=== PATIENT | female | born 2000 | race Caucasian/White ===

== ENCOUNTER 2018-03-13 13:42 | Inpatient (IN) | payer MEDICAID ==
[2018-03-13] MEDS ORDERED: Sodium Chloride 0.9% 1,000 ML IV STA (13:59)
--- NOTE | 2018-03-13 14:00 | ED PDOC ---
HPI: Abdomen Time Seen by Provider: 03/13/18 13:50 Chief Complaint (Nursing): GI Problem History Per: Patient Onset/Duration Of Symptoms: Days (2) Current Symptoms Are (Timing): Still Present Severity: Moderate Pain Scale Rating Of: 5 Quality Of Discomfort: Unable To Describe Associated Symptoms: Fever, Nausea, Vomiting. denies: Diarrhea Exacerbating Factors: None Alleviating Factors: None Additional Complaint(s): Refferred by PMD for fever assoc with headache, abd pain,nausea and vomiting x 1 day. Dx'ed with Hand, foot, mouth disease 2 weeks ago, improved but then started with above sxs yesterday. Denies stiff neck. Past Medical History Vital Signs: Last Vital Signs Temp 100.8 F H 03/13/18 15:44 Pulse 117 H 03/13/18 15:44 Resp 16 03/13/18 15:44 BP 93/53 L 03/13/18 15:44 Pulse Ox 100 03/13/18 16:29 - Medical History PMH: Asthma - Family History Family History: States: Unknown Family Hx - Allergies Allergies/Adverse Reactions: Allergies Allergy/AdvReac Type Severity Reaction Status Date / Time No Known Allergies Allergy Verified 03/13/18 13:43 Review of Systems ROS Statement: Except As Marked, All Systems Reviewed And Found Negative Constitutional: Positive for: Fever Gastrointestinal: Positive for: Nausea, Vomiting, Abdominal Pain Neurological: Positive for: Headache Physical Exam - Reviewed Nursing Documentation Reviewed: Yes Vital Signs Reviewed: Yes - Physical Exam Appears: Positive for: Non-toxic, No Acute Distress Head Exam: Positive for: ATRAUMATIC, NORMAL INSPECTION, NORMOCEPHALIC Skin: Positive for: Normal Color, Warm. Negative for: Rash (No rash noted on hands feet or mouth) Eye Exam: Positive for: EOMI, Normal appearance, PERRL ENT: Positive for: Normal ENT Inspection Neck: Positive for: Normal, Painless ROM, Supple Cardiovascular/Chest: Positive for: Regular Rate, Rhythm Respiratory: Positive for: CNT, Normal Breath Sounds Gastrointestinal/Abdominal: Positive for: Normal Exam, Soft. Negative for: Tenderness Back: Positive for: Normal Inspection Extremity: Positive for: Normal ROM Neurologic/Psych: Positive for: Alert, Oriented - Laboratory Results Result Diagrams: 03/13/18 14:32 03/13/18 14:32 - ECG O2 Sat by Pulse Oximetry: 100 Medical Decision Making Medical Decision Making: LP performed by Dr. Goel, anesthesia Disposition - Clinical Impression Clinical Impression: SIRS (systemic inflammatory response syndrome), Anemia - Patient ED Disposition Is Patient to be Admitted: Yes - Disposition Disposition Time: 18:00 Condition: FAIR Forms: [facility] (Portuguese) - Pt Status Changed To: Hospital Disposition Of: Observation - POA Present On Arrival: None
[2018-03-13] MEDS: Sodium Chloride 0.9% 1,000 ML IV STA ×2 (14:11→17:55)
[2018-03-13 14:19] LABS: VENOUS BLOOD GAS BASE EXCESS -2.6 mmol/L (0.0-2.0); VENOUS BLOOD GAS PCO2 40 mmHg (40-60); VENOUS BLOOD GAS PO2 28 mm/Hg (30-55); VENOUS BLOOD PH 7.36 (7.32-7.43)
[2018-03-13 14:51] LABS: BASO % 0.3 % (0.0-2.0); EOS % 0.1 % (0.0-4.0); LYMPH # 1.2 K/uL (1.0-4.3); LYMPH % 15.7 % (20.0-40.0); MEAN CELL VOLUME 54.9 fl (81.0-99.0); MEAN CORPUSCULAR HEMOGLOBIN 17.3 pg (27.0-31.0); MEAN CORPUSCULAR HGB CONC 31.6 g/dL (33.0-37.0); MONO # 0.2 K/uL (0.0-0.8); MONO % 2.4 % (0.0-10.0); NEUT % 81.5 % (50.0-75.0); RBC 4.6 Mil/uL (3.80-5.20); RED CELL DISTRIBUTION WIDTH 20.9 % (11.5-14.5); WHITE BLOOD COUNT 7.4 K/uL (4.8-10.8)
--- NOTE | 2018-03-13 14:53 | CT ---
Date of service: 03/13/2018 PROCEDURE: CT HEAD WITHOUT CONTRAST. HISTORY: headache COMPARISON: None available. TECHNIQUE: Axial computed tomography images were obtained through the head/brain without intravenous contrast. Radiation dose: Total exam DLP = mGy-cm. This CT exam was performed using one or more of the following dose reduction techniques: Automated exposure control, adjustment of the mA and/or kV according to patient size, and/or use of iterative reconstruction technique. FINDINGS: HEMORRHAGE: No intracranial hemorrhage. BRAIN: No mass effect or edema. No atrophy or chronic microvascular ischemic changes. VENTRICLES: Unremarkable. No hydrocephalus. CALVARIUM: Unremarkable. PARANASAL SINUSES: Unremarkable as visualized. No significant inflammatory changes. MASTOID AIR CELLS: Unremarkable as visualized. No inflammatory changes. OTHER FINDINGS: None. IMPRESSION: Normal CT of the Head.
[2018-03-13 15:15] LABS: ALB/GLOB RATIO 1.1 (1.0-2.1); ALBUMIN 3.9 g/dL (3.5-5.0); ALT/SGPT 32 U/L (9-52); AST/SGOT 39 U/L (14-36); BLOOD UREA NITROGEN 13 mg/dl (7-17); CALCIUM 8.7 mg/dL (8.4-10.2); GFR AFRICAN-AMERICAN > 60; GFR NON-AFRICAN AMERICAN > 60
[2018-03-13] MEDS ORDERED: Lidocaine 1% 20 MG/2 ML PF AMP ONE ×2 (15:28→16:14)
[2018-03-13] MEDS ORDERED: Lidocaine Hydrochloride 5 ML INJ ONE (16:14)
[2018-03-13 16:57] LABS: FLUID TYPE SPINAL FLUID
--- NOTE | 2018-03-13 17:07 | RAD ---
Date of service: 03/13/2018 HISTORY: Fever COMPARISON: No prior. FINDINGS: LUNGS: No active pulmonary disease. PLEURA: No significant pleural effusion identified, no pneumothorax apparent. CARDIOVASCULAR: Normal. OSSEOUS STRUCTURES: No significant abnormalities. VISUALIZED UPPER ABDOMEN: Normal. OTHER FINDINGS: None. IMPRESSION: No active disease.
[2018-03-13 17:30] LABS: CSF APPEARANCE CLEAR/COLORLESS (CLEAR); CSF VOLUME 2 mL (0-1)
--- NOTE | 2018-03-13 18:24 | CP.PCM.PN ---
Subjective - Date & Time of Evaluation Date of Evaluation: 03/13/18 Time of Evaluation: 16:10 - Subjective Subjective: Consult requested by Dr Kamara to perform lumbar puncture to rule out meningitis after previous unsuccessful attempt. Objective - Vital Signs/Intake and Output Vital Signs (last 24 hours): Temp Pulse Resp BP Pulse Ox 100.8 F H 117 H 16 93/53 L 100 03/13/18 15:44 03/13/18 15:44 03/13/18 15:44 03/13/18 15:44 03/13/18 18:00 Intake and Output: 03/13/18 03/13/18 06:59 18:59 Intake Total 1000 Balance 1000 - Medications Medications: Current Medications Sodium Chloride (Sodium Chloride 0.9%) 1,000 mls @ 200 mls/hr IV .Q5H STA Stop: 03/13/18 18:55 Last Admin: 03/13/18 17:55 Dose: 200 mls/hr - Labs Labs: 03/13/18 14:32 03/13/18 14:32 - Constitutional Appears: Well Assessment and Plan - Assessment and Plan (Free Text) Assessment: Chief complaint consistent with possible meningitis. Plan: Will perform lumbar puncture for CSF studies per Dr. Kamara. Procedures Attestation:: I certify that I have explained the specified Operation(s) or Procedure(s), risks, benefits and reasonable alternatives to the Patient and/or other person responsible. The opportunity was given to ask questions and all questions answered - Lumbar Puncture Consent Obtained: Written Consent Time Out Performed: Yes Patient Position: Upright Skin Prep: Povidone-Iodine 1% Local Anesthetic Used: Lidocaine 1% Amount of Anesthesia Used (mls): 3 (cc) Spinal Needle Gauge: 20G Interspace Used: L4-L5 Fluid Initially Obtained: Clear Complications: None Additional comments: Risks and benefits of the procedure were explained by Anh Alatorre prior to his attempt and again reviewed with patient by me. No opening pressure was requested by ED physician. At request of ED physician 2 cc CSF collected in each of 4 sterile vials. Post procedure, no bleeding was evident at puncture site. A sterile dressing was applied. Vital signs remained stable both during and post procedure. The patient tolerated the procedure well. The patient was educated about signs and symptoms of post dural puncture headache and was instructed to return to the ER with any concerns, new, or worsening symptoms if discharged.
[2018-03-13] MEDS: Sodium Chloride 0.9% 1,000 ML IV SCH ×2 (21:00→23:23)
[2018-03-13 23:28] LABS: CSF MONO/MACROPHAGE 0 % (0-0)
[2018-03-13] MEDS ORDERED: Piperacillin/Tazobact 3.375 GM in Sodium Chloride 0.9% 100 ML IVPB STA (23:57)
--- NOTE | 2018-03-14 00:08 | CP.PCM.PCO ---
<Flo Campos - Last Filed: 03/13/18 23:58> Progress - Re-Evaluation Re-evaluation Note: 03/13/18 23:59 Called by nurse to evaluate patient. 17 YO F w/ PMH of hand foot mouth disease admitted for abdominal pain, headache, nausea and vomiting x 1 day, had a lumbar puncture today which did not show any significant findings. Patient had no white count on blood work however was febrile on admission, hypotensive, and tachycardic. Blood cultures were taken in the ER. Patient evaluated at bedside blood pressure 87/47 with heart rate of 114, after receiving 2 L bolus in ER and on fluids at 150. Patient has not received empiric antibiotics. Case discussed with Hospitalist Dr. Nilesh Roberts Gen: NCAT CVS: Tachycardic S1S2 heard no M/R/G RESP: CTAB Abd: Soft, NTND, BS + COOKING INSTRUCTOR: Cranial nerves grossly intact, A/P - Fluid bolus 1 L - Emperic antibiotics: Vanco and Zosyn x 1 - Will repeat vitals after bolus of fluids <Tyrell Roberts - Last Filed: 03/15/18 07:02> Attending/Attestation - Attestation I have personally seen and examined this patient.: No I have fully participated in the care of the patient.: No I have reviewed all pertinent clinical information: Yes Notes (Text): 03/15/18 06:59 I discussed this case with Dr Gibbons and I reviewed the medical records. I agree with the assessment and plan indicating my direct input. The Patient's heart Rate has improved from 140s to 115/min with the IV NS bolus of 2 Liters and continued at 200mls/hr. The antibiotic is empirical pending blood cultures. Tyrell Roberts.
[2018-03-14] MEDS ORDERED: Sodium Chloride 0.9% 1,000 ML IV SCH (00:30)
[2018-03-14] MEDS: Sodium Chloride 0.9% 1,000 ML IV SCH ×3 (00:55→15:56)
[2018-03-14 07:35] LABS: BASO % 0.3 % (0.0-2.0); EOS # 0.2 K/uL (0.0-0.7); EOS % 2.3 % (0.0-4.0); HEMOGLOBIN 7.1 g/dL (12.0-16.0); LYMPH # 0.8 K/uL (1.0-4.3); LYMPH % 11.8 % (20.0-40.0); MEAN CELL VOLUME 54.5 fl (81.0-99.0); MEAN CORPUSCULAR HEMOGLOBIN 17.6 pg (27.0-31.0); MEAN CORPUSCULAR HGB CONC 32.4 g/dL (33.0-37.0); MONO # 0.5 K/uL (0.0-0.8); MONO % 7.8 % (0.0-10.0); NEUT # 5.4 K/uL (1.8-7.0); NEUT % 77.8 % (50.0-75.0); PLATELET COUNT 330 K/uL (130-400); RBC 4.05 Mil/uL (3.80-5.20); RED CELL DISTRIBUTION WIDTH 20.6 % (11.5-14.5); WHITE BLOOD COUNT 6.9 K/uL (4.8-10.8)
[2018-03-14 07:40] LABS: ALB/GLOB RATIO 0.8 (1.0-2.1); ALBUMIN 2.5 g/dL (3.5-5.0); ALT/SGPT 60 U/L (9-52); AST/SGOT 83 U/L (14-36); BLOOD UREA NITROGEN 8 mg/dl (7-17); GFR AFRICAN-AMERICAN > 60; GFR NON-AFRICAN AMERICAN > 60
--- NOTE | 2018-03-14 08:46 | CP.PCM.HP ---
History of Present Illness - History of Present Illness History of Present Illness: pt admitted for headache, fever, photophobia, acute anemia. had coxsackie 2 wks ago, felt better then started w/ symptoms. had LP in ER-results reviewed. all bw from er reviwed as well. ID and ICU consults ordered this am as pt cont to be hypotensive, tachycardic, febrile. no n/v/d. mild cough/congestion. no reported travel hx. only med/surg hx ovarian torsion/removal age 7 heme/onc consult for acute anemia Present on Admission - Present on Admission Any Indicators Present on Admission: No Review of Systems - Constitutional Constitutional: As Per HPI, Fatigue, Fever - EENT Eyes: As Per HPI, Photophobia - Neurological Neurological: As Per HPI, Headaches Past Patient History - Past Medical History & Family History Past Medical History?: Yes - Past Social History Smoking Status: Never Smoked - CARDIAC Hx Cardiac Disorders: No - PULMONARY Hx Respiratory Disorders: No - NEUROLOGICAL Hx Neurological Disorder: No - HEENT Hx HEENT Problems: No - RENAL Hx Chronic Kidney Disease: No - ENDOCRINE/METABOLIC Hx Endocrine Disorders: No - HEMATOLOGICAL/ONCOLOGICAL Hx Blood Disorders: Yes Hx Anemia: Yes - INTEGUMENTARY Hx Dermatological Problems: No - MUSCULOSKELETAL/RHEUMATOLOGICAL Hx Musculoskeletal Disorders: No Hx Falls: No - GASTROINTESTINAL Hx Gastrointestinal Disorders: No - GENITOURINARY/GYNECOLOGICAL Hx Genitourinary Disorders: No - PSYCHIATRIC Hx Psychophysiologic Disorder: No Hx Substance Use: No - SURGICAL HISTORY Hx Surgeries: Yes Other/Comment: Left ovary removal - ANESTHESIA Hx Anesthesia: Yes Hx Anesthesia Reactions: No Hx Malignant Hyperthermia: No Has any member of the family had a problem w/ anesthesia?: No Meds Allergies/Adverse Reactions: Allergies Allergy/AdvReac Type Severity Reaction Status Date / Time No Known Allergies Allergy Verified 03/13/18 13:43 Physical Exam - Constitutional Appears: Well, Non-toxic, No Acute Distress - Head Exam Head Exam: ATRAUMATIC, NORMAL INSPECTION, NORMOCEPHALIC - Eye Exam Eye Exam: EOMI, Normal appearance, PERRL Pupil Exam: NORMAL ACCOMODATION, PERRL - ENT Exam ENT Exam: Mucous Membranes Moist, Normal Exam - Neck Exam Neck exam: Positive for: Normal Inspection - Respiratory Exam Respiratory Exam: Clear to Auscultation Bilateral, NORMAL BREATHING PATTERN - Cardiovascular Exam Cardiovascular Exam: REGULAR RHYTHM, RRR, +S1, +S2 - GI/Abdominal Exam GI & Abdominal Exam: Normal Bowel Sounds, Soft. absent: Tenderness - Extremities Exam Extremities exam: Positive for: full ROM, normal capillary refill, normal inspection, pedal pulses present - Back Exam Back exam: NORMAL INSPECTION - Neurological Exam Neurological exam: Alert, CN II-XII Intact, Normal Gait, Oriented x3, Reflexes Normal - Psychiatric Exam Psychiatric exam: Normal Affect, Normal Mood - Skin Skin Exam: Dry, Intact, Normal Color, Warm Results - Vital Signs Recent Vital Signs: Last Vital Signs Temp 100.3 F H 03/14/18 07:52 Pulse 119 H 03/14/18 07:52 Resp 18 03/14/18 07:52 BP 93/55 L 03/14/18 07:52 Pulse Ox 99 03/14/18 07:52 - Labs Result Diagrams: 03/14/18 06:32 03/14/18 06:32 Labs: Laboratory Results - last 24 hr 03/13/18 03/13/18 03/13/18 13:59 14:07 14:32 WBC 7.4 RBC 4.60 Hgb 8.0 L Hct 25.2 L MCV 54.9 L MCH 17.3 L MCHC 31.6 L RDW 20.9 H Plt Count 388 MPV 9.0 Neut % (Auto) 81.5 H Lymph % (Auto) 15.7 L Craven % (Auto) 2.4 Eos % (Auto) 0.1 Baso % (Auto) 0.3 Neut # (Auto) 6.0 Lymph # (Auto) 1.2 Craven # (Auto) 0.2 Eos # (Auto) 0.0 Baso # (Auto) 0.0 Sickle Cell Screen pO2 28 L VBG pH 7.36 VBG pCO2 40 VBG HCO3 22.2 VBG Total CO2 23.8 VBG O2 Sat (Calc) 54.2 VBG Base Excess -2.6 L VBG Potassium 3.4 L Sodium 137.0 Chloride 105.0 Glucose 117 H Lactate 3.9 H FiO2 21.0 Potassium Carbon Dioxide Anion Gap BUN Creatinine Est GFR ( Amer) Est GFR (Non-Af Amer) POC Glucose (mg/dL) 121 H Random Glucose Calcium Total Bilirubin AST ALT Alkaline Phosphatase Total Protein Albumin Globulin Albumin/Globulin Ratio Venous Blood Potassium 3.4 L Fluid Type CSF Volume CSF Appearance CSF WBC CSF RBC CSF Total Cell Counted CSF Neutrophils CSF Lymphocytes CSF Monos/Macrophages CSF Comment CSF Glucose CSF Total Protein Grp A Beta Strep Ag 03/13/18 03/13/18 03/13/18 14:32 15:56 16:00 WBC RBC Hgb Hct MCV MCH MCHC RDW Plt Count MPV Neut % (Auto) Lymph % (Auto) Craven % (Auto) Eos % (Auto) Baso % (Auto) Neut # (Auto) Lymph # (Auto) Craven # (Auto) Eos # (Auto) Baso # (Auto) Sickle Cell Screen Negative pO2 VBG pH VBG pCO2 VBG HCO3 VBG Total CO2 VBG O2 Sat (Calc) VBG Base Excess VBG Potassium Sodium 138 Chloride 104 Glucose Lactate FiO2 Potassium 3.6 Carbon Dioxide 21 L Anion Gap 17 BUN 13 Creatinine 0.8 Est GFR ( Amer) > 60 Est GFR (Non-Af Amer) > 60 POC Glucose (mg/dL) Random Glucose 111 H Calcium 8.7 Total Bilirubin 0.4 AST 39 H ALT 32 Alkaline Phosphatase 64 Total Protein 7.6 Albumin 3.9 Globulin 3.7 Albumin/Globulin Ratio 1.1 Venous Blood Potassium Fluid Type CSF Volume CSF Appearance CSF WBC CSF RBC CSF Total Cell Counted CSF Neutrophils CSF Lymphocytes CSF Monos/Macrophages CSF Comment CSF Glucose CSF Total Protein Grp A Beta Strep Ag Negative 03/13/18 03/13/18 03/13/18 16:50 16:50 16:50 WBC RBC Hgb Hct MCV MCH MCHC RDW Plt Count MPV Neut % (Auto) Lymph % (Auto) Craven % (Auto) Eos % (Auto) Baso % (Auto) Neut # (Auto) Lymph # (Auto) Craven # (Auto) Eos # (Auto) Baso # (Auto) Sickle Cell Screen pO2 VBG pH VBG pCO2 VBG HCO3 VBG Total CO2 VBG O2 Sat (Calc) VBG Base Excess VBG Potassium Sodium Chloride Glucose Lactate FiO2 Potassium Carbon Dioxide Anion Gap BUN Creatinine Est GFR ( Amer) Est GFR (Non-Af Amer) POC Glucose (mg/dL) Random Glucose Calcium Total Bilirubin AST ALT Alkaline Phosphatase Total Protein Albumin Globulin Albumin/Globulin Ratio Venous Blood Potassium Fluid Type Spinal fluid CSF Volume 2 H CSF Appearance Clear/colorless CSF WBC 0.0 CSF RBC 1.0 H CSF Total Cell Counted 0 CSF Neutrophils 0 CSF Lymphocytes 0.0 CSF Monos/Macrophages 0 CSF Comment Colorless CSF Glucose 56 CSF Total Protein 24.0 Grp A Beta Strep Ag 03/14/18 03/14/18 06:32 06:32 WBC 6.9 RBC 4.05 Hgb 7.1 L Hct 22.1 L MCV 54.5 L MCH 17.6 L MCHC 32.4 L RDW 20.6 H Plt Count 330 MPV 9.0 Neut % (Auto) 77.8 H Lymph % (Auto) 11.8 L Craven % (Auto) 7.8 Eos % (Auto) 2.3 Baso % (Auto) 0.3 Neut # (Auto) 5.4 Lymph # (Auto) 0.8 L Craven # (Auto) 0.5 Eos # (Auto) 0.2 Baso # (Auto) 0.0 Sickle Cell Screen pO2 VBG pH VBG pCO2 VBG HCO3 VBG Total CO2 VBG O2 Sat (Calc) VBG Base Excess VBG Potassium Sodium 138 Chloride 111 H Glucose Lactate FiO2 Potassium 3.7 Carbon Dioxide 18 L Anion Gap 13 BUN 8 Creatinine 0.7 Est GFR ( Amer) > 60 Est GFR (Non-Af Amer) > 60 POC Glucose (mg/dL) Random Glucose 108 H Calcium 7.0 L Total Bilirubin 0.4 AST 83 H D ALT 60 H D Alkaline Phosphatase 50 Total Protein 5.6 L Albumin 2.5 L D Globulin 3.1 Albumin/Globulin Ratio 0.8 L Venous Blood Potassium Fluid Type CSF Volume CSF Appearance CSF WBC CSF RBC CSF Total Cell Counted CSF Neutrophils CSF Lymphocytes CSF Monos/Macrophages CSF Comment CSF Glucose CSF Total Protein Grp A Beta Strep Ag Assessment & Plan (1) Fever Assessment and Plan: tylenol/motrin prn ivf unkn etiology Status: Acute (2) Hypotension Assessment and Plan: ivf @ 200ml/hr 2l bolus cont to monitor icu eval Status: Acute (3) Anemia Assessment and Plan: t & c x 2 stool blood unkn etiology Status: Acute (4) SIRS (systemic inflammatory response syndrome) Assessment and Plan: unkn etiology ID, heme/onc consults c/s pending further bw as per ID pending vanco/zosyn fluid support ICU eval Status: Acute (5) DVT prophylaxis Assessment and Plan: scd nad ae hose lovenox held for now r/t acute anemia Status: Acute Decision To Admit - Pt Status Changed To: Hospital Disposition Of: Inpatient - Admit Certification Admit to Inpatient:: After my assessment, the patient will require hospitalization for at least two midnights. This is because of the severity of symptoms shown, intensity of services needed, and/or the medical risk in this patient being treated as an outpatient. - . Bed Request Type: Telemetry Admitting Physician: Jose Johnson
[2018-03-14 09:08] LABS: MCH 17.6 pg (27.0-33.0); MCV 56.7 fL (80.0-100.0)
[2018-03-14] MEDS: Piperacillin/Tazobact 3.375 GM in Sodium Chloride 0.9% 100 ML IVPB SCH ×2 (11:44→15:54)
[2018-03-14 12:59] LABS: BANDS 1 % (0-2); EOSINOPHIL 4 % (0-7); LYMPHOCYTE 7 % (20-50); MONOCYTE 10 % (0-10); NEUTROPHIL 78 % (42-75); TOTAL CELLS COUNTED 100
[2018-03-14 13:03] LABS: ANISOCYTOSIS MODERATE; HYPOCHROMIC MODERATE; MICROCYTOSIS MARKED; OVALOCYTES SLIGHT; PLATELET ESTIMATE NORMAL (NORMAL); SCHISTOCYTES SLIGHT; TEARDROP CELLS SLIGHT
[2018-03-14 15:30] LABS: BASO % 0.3 % (0.0-2.0); EOS # 0.1 K/uL (0.0-0.7); EOS % 2.1 % (0.0-4.0); HEMOGLOBIN 7.5 g/dL (12.0-16.0); LYMPH # 1.3 K/uL (1.0-4.3); LYMPH % 19.5 % (20.0-40.0); MEAN CELL VOLUME 54.3 fl (81.0-99.0); MEAN CORPUSCULAR HEMOGLOBIN 17.3 pg (27.0-31.0); MEAN CORPUSCULAR HGB CONC 31.8 g/dL (33.0-37.0); MEAN PLATELET VOLUME 9.3 fl (7.2-11.7); MONO # 0.5 K/uL (0.0-0.8); MONO % 6.9 % (0.0-10.0); NEUT # 4.8 K/uL (1.8-7.0); NEUT % 71.2 % (50.0-75.0); NRBC % 0.1 % (0.0-0.0); RBC 4.37 Mil/uL (3.80-5.20); RED CELL DISTRIBUTION WIDTH 20.8 % (11.5-14.5); WHITE BLOOD COUNT 6.8 K/uL (4.8-10.8)
--- NOTE | 2018-03-14 17:26 | CP.PCM.CON ---
History of Present Illness - History of Present Illness History of Present Illness: 17 yo female admitted for headache, fever, photophobia, acute anemia with hypotension admitted for possible meningitis Currently has no fever no neck stiffness alert/ oriented x 3 She had coxsackie 2 wks ago- made recovery No skin lesions or rash no travel no pets no bites no rash PMH- anemia ( heavy menses) ovarian torsion- age 7 Review of Systems - Review of Systems All systems: reviewed and no additional remarkable complaints except - Constitutional Constitutional: As Per HPI, Chills, Headache, Malaise - EENT Eyes: absent: As Per HPI, Blind Spots, Blurred Vision, Change in Vision, Decreased Night Vision, Diplopia, Discharge, Dry Eye, Exophthalmos, Floaters, Irritation, Itchy Eyes, Loss of Peripheral Vision, Pain, Photophobia, Requires Corrective Lenses, Sees Flashes, Spots in Vision, Tunnel Vision, Other Visual Disturbances, Loss of Vision, Other Ears: absent: As Per HPI, Decreased Hearing, Ear Discharge, Ear Pain, Tinnitus, Abnormal Hearing, Disequilibrium, Dizziness, Other Nose/Mouth/Throat: absent: As Per HPI, Epistaxis, Nasal Congestion, Nasal Discharge, Nasal Obstruction, Nasal Trauma, Nose Pain, Post Nasal Drip, Sinus Pain, Sinus Pressure, Bleeding Gums, Change in Voice, Dental Pain, Dry Mouth, Dysphagia, Halitosis, Hoarsness, Lip Swelling, Mouth Lesions, Mouth Pain, Odynophagia, Sore Throat, Throat Swelling, Tongue Swelling, Facial Pain, Neck Pain, Neck Mass, Other - Breasts Breasts: absent: As Per HPI, Change in Shape, Mass, Pain, Nipple Discharge, Nipple Inversion, Skin Changes, Swelling, Other - Cardiovascular Cardiovascular: absent: As Per HPI, Acrocyanosis, Chest Pain, Chest Pain at Rest , Chest Pain with Activity, Claudication, Diaphoresis, Dyspnea, Dyspnea on Exertion, Edema, Irregular Heart Rhythm, Pain Radiating to Arm/Neck/Jaw, Leg Edema, Leg Ulcers, Lightheadedness, Orthopnea, Palpitations, Paroxysmal Nocturnal Dyspnea, Pedal Edema, Radiating Pain, Rapid Heart Rate, Slow Heart Rate, Syncope, Other - Respiratory Respiratory: absent: As Per HPI, Cough, Dyspnea, Hemoptysis, Dyspnea on Exertion , Wheezing, Snoring, Stridor, Pain on Inspiration, Chest Congestion, Excessive Mucous Production, Change in Mucous Color, Pain with Coughing, Other - Gastrointestinal Gastrointestinal: absent: As Per HPI, Abdominal Pain, Belching, Bloating, Change in Bowel Habits, Change in Stool Character, Coffee Ground Emesis, Constipation, Cramping, Diarrhea, Dyspepsia, Dysphagia, Early Satiety, Excessive Flatus, Fecal Incontinence, Heartburn, Hematemesis, Hematochezia, Loose Stools, Melena, Nausea, Odynophagia, Temesmus, Vomiting, Other - Genitourinary Genitourinary: absent: As Per HPI, Change in Urinary Stream, Difficulty Urinating, Dysuria, Flank Pain, Hematuria, Pyuria, Nocturia, Urinary Incontinence, Urinary Frequency, Urinary Hesitance, Urinary Urgency, Voiding Freq/Small Amts, Freq UTI, Hx Renal/Bladder Calculi, Hx /Renal Surgery, Bladder Distension, Other - Reproductive: Female Reproductive:Female: absent: As Per HPI, Amenorrhea, Amenorrhea/ Control, Currently Menstual, Cycle <21 Days, Cycle >35 Days, Cycle Variable, Menses 1-7 Days, Menses >/= 8 Days, Menses Variable, Cycle > 4 Weeks Between, No Menses for 6 Months, Heavy Menses, Light Menses, Normal Menses, Spotting Between Cycles , S/P Hysterectomy, Menopausal, Post Menopausal, Premenarche, Abnormal Vaginal Bleeding, Dysmenorrhea, Dyspareunia, Genital Lesions, Genital Pruritis, Pelvic Pain, Prolapse Symptoms, Sexual Dysfunction, Vaginal Discharge, Vaginal Dryness , Vaginal Odor, Vaginal Pruritis, Other - Menstruation Menstruation: As Per HPI - Musculoskeletal Musculoskeletal: absent: As Per HPI, Abnormal Gait, Arthralgias, Atrophy, Back Pain, Deformity, Joint Swelling, Limited Range of Motion, Loss of Height, Muscle Cramps, Muscle Weakness, Myalgias, Neck Pain, Numbness, Radiating Pain into Limb, Stiffness, Tingling, Other - Integumentary Integumentary: absent: As Per HPI, Acne, Alopecia, Bleeding Lesions, Change in Hair, Change in Nails, Change in Pigmentation, Changing Lesions, Dry Skin, Erythema, Furuncle, Hirsutism, Lesions, New Lesions, Non-Healing Lesions, Photosensitivity, Pruritus, Rash, Skin Pain, Skin Ulcer, Sores, Striae, Swelling , Unusual Bruising, Wounds, Jaundice, Other - Neurological Neurological: absent: As Per HPI, Abnormal Gait, Abnormal Hearing, Abnormal Movements, Abnormal Speech, Behavioral Changes, Burning Sensations, Confusion, Convulsions, Disequilibrium, Dizziness, Numbness, Focal Weakness, Frequent Falls , Headaches, Lack of Coordination, Loss of Vision, Memory Loss, Paresthesias, Radicular Pain, Restless Legs, Sensory Deficit, Syncope, Tingling, Tremor, Vertigo, Weakness, Other Visual Disturbances, Other - Psychiatric Psychiatric: absent: As Per HPI, Abnormal Sleep Pattern, Anhedonia, Anxiety, Auditory Hallucinations, Behavioral Changes, Change in Appetite, Change in Libido, Confusion, Depression, Difficulty Concentrating, Hallucinations, Homicidal Ideation, Hopelessness, Irritability, Memory Loss, Mood Swings, Panic Attacks, Paranoia, Suicidal Ideation, Visual Hallucinations, Tactile Hallucinations, Other - Endocrine Endocrine: absent: As Per HPI, Change in Body Appearance, Change in Libido, Cold Intolorance, Deepening of Voice, Excessive Sweating, Fatigue, Flushing, Heat Intolorance, Increase in Ring/Shoe/Hat Size, Palpitations, Polydipsia, Polyphagia, Polyuria, Other - Hematologic/Lymphatic Hematologic: As Per HPI Past Patient History - Past Medical History & Family History Past Medical History?: Yes - Past Social History Smoking Status: Never Smoked - CARDIAC Hx Cardiac Disorders: No - PULMONARY Hx Respiratory Disorders: No - NEUROLOGICAL Hx Neurological Disorder: No - HEENT Hx HEENT Problems: No - RENAL Hx Chronic Kidney Disease: No - ENDOCRINE/METABOLIC Hx Endocrine Disorders: No - HEMATOLOGICAL/ONCOLOGICAL Hx Blood Disorders: Yes Hx Anemia: Yes - INTEGUMENTARY Hx Dermatological Problems: No - MUSCULOSKELETAL/RHEUMATOLOGICAL Hx Musculoskeletal Disorders: No Hx Falls: No - GASTROINTESTINAL Hx Gastrointestinal Disorders: No - GENITOURINARY/GYNECOLOGICAL Hx Genitourinary Disorders: No - PSYCHIATRIC Hx Psychophysiologic Disorder: No Hx Substance Use: No - SURGICAL HISTORY Hx Surgeries: Yes Other/Comment: Left ovary removal - ANESTHESIA Hx Anesthesia: Yes Hx Anesthesia Reactions: No Hx Malignant Hyperthermia: No Has any member of the family had a problem w/ anesthesia?: No Meds Allergies/Adverse Reactions: Allergies Allergy/AdvReac Type Severity Reaction Status Date / Time No Known Allergies Allergy Verified 03/13/18 13:43 - Medications Medications: Current Medications Acetaminophen (Tylenol 325mg Tab) 650 mg PO Q4 PRN PRN Reason: Fever >100.4 F Last Admin: 03/14/18 05:51 Dose: 650 mg Fluticasone Propionate (Flonase) 2 spr VANDA DAILY PRN PRN Reason: Nasal congestion Sodium Chloride (Sodium Chloride 0.9%) 1,000 mls @ 150 mls/hr IV .Q6H40M [facility] Stop: 03/14/18 19:47 Last Admin: 03/14/18 08:13 Dose: Not Given Sodium Chloride (Sodium Chloride 0.9%) 1,000 mls @ 999 mls/hr IV .Q1H1M [facility] Stop: 03/14/18 23:12 Last Admin: 03/14/18 00:55 Dose: 999 mls/hr Vancomycin HCl 1 gm/ Sodium (Chloride) 250 mls @ 166.667 mls/hr IVPB ONCE ONE PRN Reason: Protocol Stop: 03/15/18 01:24 Last Admin: 03/14/18 02:04 Dose: 166.667 mls/hr Sodium Chloride (Sodium Chloride 0.9%) 1,000 mls @ 999 mls/hr IV .Q1H1M [facility] Stop: 03/15/18 00:23 Piperacillin Sod/Tazobactam (Sod 3.375 gm/ Sodium Chloride) 100 mls @ 100 mls/ hr IVPB Q6 [facility] PRN Reason: Protocol Last Admin: 03/14/18 15:54 Dose: 100 mls/hr Vancomycin HCl 1 gm/ Sodium (Chloride) 250 mls @ 166.667 mls/hr IVPB Q12@0200, 1400 MATHEUS PRN Reason: Protocol Last Admin: 03/14/18 13:38 Dose: 166.667 mls/hr Sodium Chloride (Sodium Chloride 0.9%) 1,000 mls @ 125 mls/hr IV .Q8H [facility] Stop: 03/15/18 12:39 Last Admin: 03/14/18 15:56 Dose: 125 mls/hr Ibuprofen (Motrin Tab) 400 mg PO Q6 PRN PRN Reason: Fever >100.4 F Loratadine (Claritin) 10 mg PO DAILY [facility] Last Admin: 03/14/18 11:43 Dose: 10 mg Physical Exam - Constitutional Appears: Non-toxic, No Acute Distress - Head Exam Head Exam: ATRAUMATIC, NORMAL INSPECTION, NORMOCEPHALIC - Eye Exam Eye Exam: EOMI, PERRL. absent: Scleral icterus Pupil Exam: NORMAL ACCOMODATION - ENT Exam ENT Exam: Mucous Membranes Dry, Normal External Ear Exam Additional comments: + Pallor - Neck Exam Neck exam: Negative for: Lymphadenopathy - Respiratory Exam Respiratory Exam: Decreased Breath Sounds, Clear to Auscultation Bilateral - Cardiovascular Exam Cardiovascular Exam: REGULAR RHYTHM, +S1, +S2 - GI/Abdominal Exam GI & Abdominal Exam: Diminished Bowel Sounds, Soft. absent: Tenderness - Rectal Exam Rectal Exam: Deferred - Exam Exam: NORMAL INSPECTION - Extremities Exam Extremities exam: Negative for: pedal edema - Back Exam Back exam: absent: CVA tenderness (L), CVA tenderness (R), paraspinal tenderness - Neurological Exam Neurological exam: Alert, CN II-XII Intact, Oriented x3, Reflexes Normal - Psychiatric Exam Psychiatric exam: Normal Mood - Skin Skin Exam: Dry, Intact Results - Vital Signs Recent Vital Signs: Last Vital Signs Temp 99.9 F H 03/14/18 15:42 Pulse 109 H 03/14/18 15:42 Resp 20 03/14/18 15:42 BP 116/67 03/14/18 15:42 Pulse Ox 98 03/14/18 15:42 - Labs Result Diagrams: 03/14/18 09:20 03/14/18 06:32 Labs: Laboratory Results - last 24 hr 03/13/18 03/13/18 03/13/18 14:07 16:00 16:00 WBC RBC Hgb Hct MCV MCH MCHC RDW Plt Count MPV Neut % (Auto) Lymph % (Auto) [place] % (Auto) Eos % (Auto) Baso % (Auto) Neut # (Auto) Lymph # (Auto) [place] # (Auto) Eos # (Auto) Baso # (Auto) Neutrophils % (Manual) Band Neutrophils % Lymphocytes % (Manual) Monocytes % (Manual) Eosinophils % (Manual) Platelet Estimate Hypochromasia (manual) Anisocytosis (manual) Microcytosis (manual) Tear Drop Cells Ovalocytes Schistocytes Sickle Cell Screen Negative Hemoglobinopathy Red Blood Count 4.27 Hemoglobinopathy Hct 24.2 L Hemoglobinopathy Hgb 7.5 L Hemoglobinopathy MCV 56.7 L Hemoglobinopathy MCH 17.6 L Hemoglobinopathy RDW 21.1 H Sodium Potassium Chloride Carbon Dioxide Anion Gap BUN Creatinine Est GFR ( Amer) Est GFR (Non-Af Amer) POC Glucose (mg/dL) 121 H Random Glucose Lactic Acid Calcium Total Bilirubin AST ALT Alkaline Phosphatase Total Protein Albumin Globulin Albumin/Globulin Ratio CSF Volume CSF Appearance CSF WBC CSF RBC CSF Total Cell Counted CSF Neutrophils CSF Lymphocytes CSF Monos/Macrophages CSF Comment CSF Glucose CSF Total Protein Infectious [place] Assay Influenza Typ A,B (EIA) Blood Type Blood Type Confirm Antibody Screen Crossmatch BBK History Checked 03/13/18 03/13/18 03/13/18 16:50 16:50 16:50 WBC RBC Hgb Hct MCV MCH MCHC RDW Plt Count MPV Neut % (Auto) Lymph % (Auto) [place] % (Auto) Eos % (Auto) Baso % (Auto) Neut # (Auto) Lymph # (Auto) [place] # (Auto) Eos # (Auto) Baso # (Auto) Neutrophils % (Manual) Band Neutrophils % Lymphocytes % (Manual) Monocytes % (Manual) Eosinophils % (Manual) Platelet Estimate Hypochromasia (manual) Anisocytosis (manual) Microcytosis (manual) Tear Drop Cells Ovalocytes Schistocytes Sickle Cell Screen Hemoglobinopathy Red Blood Count Hemoglobinopathy Hct Hemoglobinopathy Hgb Hemoglobinopathy MCV Hemoglobinopathy MCH Hemoglobinopathy RDW Sodium Potassium Chloride Carbon Dioxide Anion Gap BUN Creatinine Est GFR ( Amer) Est GFR (Non-Af Amer) POC Glucose (mg/dL) Random Glucose Lactic Acid Calcium Total Bilirubin AST ALT Alkaline Phosphatase Total Protein Albumin Globulin Albumin/Globulin Ratio CSF Volume 2 H CSF Appearance Clear/colorless CSF WBC 0.0 CSF RBC 1.0 H CSF Total Cell Counted 0 CSF Neutrophils 0 CSF Lymphocytes 0.0 CSF Monos/Macrophages 0 CSF Comment Colorless CSF Glucose 56 CSF Total Protein 24.0 Infectious [place] Assay Influenza Typ A,B (EIA) Blood Type Blood Type Confirm Antibody Screen Crossmatch BBK History Checked 03/14/18 03/14/18 03/14/18 06:32 06:32 08:22 WBC 6.9 RBC 4.05 Hgb 7.1 L Hct 22.1 L MCV 54.5 L MCH 17.6 L MCHC 32.4 L RDW 20.6 H Plt Count 330 MPV 9.0 Neut % (Auto) 77.8 H Lymph % (Auto) 11.8 L [place] % (Auto) 7.8 Eos % (Auto) 2.3 Baso % (Auto) 0.3 Neut # (Auto) 5.4 Lymph # (Auto) 0.8 L [place] # (Auto) 0.5 Eos # (Auto) 0.2 Baso # (Auto) 0.0 Neutrophils % (Manual) 78 H Band Neutrophils % 1 Lymphocytes % (Manual) 7 L Monocytes % (Manual) 10 Eosinophils % (Manual) 4 Platelet Estimate Normal Hypochromasia (manual) Moderate Anisocytosis (manual) Moderate Microcytosis (manual) Marked Tear Drop Cells Slight Ovalocytes Slight Schistocytes Slight Sickle Cell Screen Hemoglobinopathy Red Blood Count Hemoglobinopathy Hct Hemoglobinopathy Hgb Hemoglobinopathy MCV Hemoglobinopathy MCH Hemoglobinopathy RDW Sodium 138 Potassium 3.7 Chloride 111 H Carbon Dioxide 18 L Anion Gap 13 BUN 8 Creatinine 0.7 Est GFR ( Amer) > 60 Est GFR (Non-Af Amer) > 60 POC Glucose (mg/dL) Random Glucose 108 H Lactic Acid 0.8 Calcium 7.0 L Total Bilirubin 0.4 AST 83 H D ALT 60 H D Alkaline Phosphatase 50 Total Protein 5.6 L Albumin 2.5 L D Globulin 3.1 Albumin/Globulin Ratio 0.8 L CSF Volume CSF Appearance CSF WBC CSF RBC CSF Total Cell Counted CSF Neutrophils CSF Lymphocytes CSF Monos/Macrophages CSF Comment CSF Glucose CSF Total Protein Infectious [place] Assay Influenza Typ A,B (EIA) Blood Type Blood Type Confirm Antibody Screen Crossmatch BBK History Checked 03/14/18 03/14/18 03/14/18 09:20 09:20 09:25 WBC 6.8 RBC 4.37 Hgb 7.5 L Hct 23.7 L MCV 54.3 L MCH 17.3 L MCHC 31.8 L RDW 20.8 H Plt Count 358 MPV 9.3 Neut % (Auto) 71.2 Lymph % (Auto) 19.5 L [place] % (Auto) 6.9 Eos % (Auto) 2.1 Baso % (Auto) 0.3 Neut # (Auto) 4.8 Lymph # (Auto) 1.3 [place] # (Auto) 0.5 Eos # (Auto) 0.1 Baso # (Auto) 0.0 Neutrophils % (Manual) Band Neutrophils % Lymphocytes % (Manual) Monocytes % (Manual) Eosinophils % (Manual) Platelet Estimate Hypochromasia (manual) Anisocytosis (manual) Microcytosis (manual) Tear Drop Cells Ovalocytes Schistocytes Sickle Cell Screen Hemoglobinopathy Red Blood Count Hemoglobinopathy Hct Hemoglobinopathy Hgb Hemoglobinopathy MCV Hemoglobinopathy MCH Hemoglobinopathy RDW Sodium Potassium Chloride Carbon Dioxide Anion Gap BUN Creatinine Est GFR ( Amer) Est GFR (Non-Af Amer) POC Glucose (mg/dL) Random Glucose Lactic Acid Calcium Total Bilirubin AST ALT Alkaline Phosphatase Total Protein Albumin Globulin Albumin/Globulin Ratio CSF Volume CSF Appearance CSF WBC CSF RBC CSF Total Cell Counted CSF Neutrophils CSF Lymphocytes CSF Monos/Macrophages CSF Comment CSF Glucose CSF Total Protein Infectious [place] Assay Negative Influenza Typ A,B (EIA) Blood Type O POSITIVE Blood Type Confirm Antibody Screen Negative Crossmatch See Detail BBK History Checked No verified bt 03/14/18 03/14/18 10:10 13:30 WBC RBC Hgb Hct MCV MCH MCHC RDW Plt Count MPV Neut % (Auto) Lymph % (Auto) [place] % (Auto) Eos % (Auto) Baso % (Auto) Neut # (Auto) Lymph # (Auto) [place] # (Auto) Eos # (Auto) Baso # (Auto) Neutrophils % (Manual) Band Neutrophils % Lymphocytes % (Manual) Monocytes % (Manual) Eosinophils % (Manual) Platelet Estimate Hypochromasia (manual) Anisocytosis (manual) Microcytosis (manual) Tear Drop Cells Ovalocytes Schistocytes Sickle Cell Screen Hemoglobinopathy Red Blood Count Hemoglobinopathy Hct Hemoglobinopathy Hgb Hemoglobinopathy MCV Hemoglobinopathy MCH Hemoglobinopathy RDW Sodium Potassium Chloride Carbon Dioxide Anion Gap BUN Creatinine Est GFR ( Amer) Est GFR (Non-Af Amer) POC Glucose (mg/dL) Random Glucose Lactic Acid Calcium Total Bilirubin AST ALT Alkaline Phosphatase Total Protein Albumin Globulin Albumin/Globulin Ratio CSF Volume CSF Appearance CSF WBC CSF RBC CSF Total Cell Counted CSF Neutrophils CSF Lymphocytes CSF Monos/Macrophages CSF Comment CSF Glucose CSF Total Protein Infectious [place] Assay Influenza Typ A,B (EIA) Negative for flu a/b Blood Type Blood Type Confirm O POSITIVE Antibody Screen Crossmatch BBK History Checked Assessment & Plan (1) Anemia Status: Acute (2) Fever Status: Acute (3) Hypotension Status: Acute (4) SIRS (systemic inflammatory response syndrome) Status: Acute - Assessment and Plan (Free Text) Assessment: possible viral syndrome compunded by chronic anemia and dehydration recc : Heme eval d/c Vanco/ zosyn IV Rocephin pending cultures
[2018-03-14 18:39] LABS: INTRACELLULAR PARASITE NEGATIVE (NEGATIVE)
[2018-03-14 20:57] LABS: SQUAMOUS EPITHIAL 1 /hpf (0-5); URINE BILIRUBIN NEGATIVE (NEGATIVE); URINE BLOOD NEGATIVE (NEGATIVE); URINE CLARITY CLEAR (Clear); URINE COLOR COLORLESS (YELLOW); URINE GLUCOSE (UA) NEG (Normal); URINE LEUKOCYTE ESTERASE NEG Leu/uL (Negative); URINE PROTEIN NEGATIVE (NEGATIVE); URINE UROBILINOGEN 0.2-1.0 mg/dL (0.2-1.0)
--- NOTE | 2018-03-14 23:47 | CON ---
Copied To: Claudio Nagy MD Attending MD: Claudio Nagy MD DATE: 03/14/2018 CRITICAL CARE CONSULTATION LOCATIONS: Patient is in room 412. HISTORY OF PRESENT ILLNESS: Patient is seen in the critical care consultation at the request of admitting physician. Patient is seen and evaluated at the bedside along with the patient's mom. 17-year-old female was admitted through ER on 03/13/2018, complaining of headache, fever, photophobia, and anemia. Reportedly she was diagnosed with Coxsackie virus 2 weeks ago in PMD's office, treated and felt better. As symptoms recurred, she came to emergency room. In ER, patient had CT head that showed no acute event. She subsequently had spinal tap done that showed no evidence of meningitis or encephalitis. Patient is admitted to the floor. Critical care consultation is requested for transfer to ICU. REVIEW OF SYSTEMS: Low grade fever. No headache. Photophobia resolved. Denies shortness of breath or chest pain. No palpitation. No abdominal pain. No diarrhea. Patient is noted to have prolonged menstrual period with a subsequent blood loss. seen [employer] and had further evaluation done. PAST MEDICAL HISTORY: Otherwise unremarkable. SURGICAL HISTORY: Negative. CURRENT MEDICATIONS: Include ceftriaxone 1 g IV daily, fluticasone nasal spray 2 sprays to both nostrils, Claritin 10 mg p.o. daily, sodium chloride at 150 mL/hour, status post vancomycin and Zosyn. PHYSICAL EXAMINATION: VITAL SIGNS: Temperature 99, T-max of 100.3, currently 99.9, heart rate 109, blood pressure 116/67 with mean arterial pressure 83, respiratory rate 20, and saturating 100%. HEAD, EYES, EARS, NOSE AND THROAT: Pupils are reactive. Conjunctivae pink. Sclerae white. Oral mucosa moist. Right tonsil enlarged and patent. NECK: Supple. Trachea is central. No cervical or cervical lymphadenopathy. CHEST: Bilateral breath sounds clear to auscultation. HEART: Rhythm regular. S1, S2 normal intensity. ABDOMEN: Bowel sounds are present and soft. Liver and spleen not palpable. Bladder not distended. EXTREMITIES: No clubbing, cyanosis, or edema. NEUROLOGIC: Nonfocal. LABORATORY DATA: WBC 6.8, hemoglobin 7.5, hematocrit 23.7, MCV 54.3, and platelet count of 358. Lactate 3.9. SMA-7; sodium 138, potassium 3.7, chloride of 111, CO2 of 18, blood urea nitrogen 8, creatinine 0.7, random glucose 108, lactic acid repeat 0.8, calcium 7, total bilirubin 0.4, AST 83, ALT 60, alkaline phosphatase 50, total protein 5.6, and albumin 2.5. Spinal tap; volume 2 ml, clear, colorless, rbc's 1, wbc's 0, glucose 56, and total protein 24. Serology, infectious mononucleosis assay negative. Influenza A and B negative. Group A beta strep antigen negative. Chest x-ray unremarkable. CT head negative. IMPRESSION: 17-year-old female admitted with headache, photophobia, and generalized weakness. Labs are significant for normal white count, normal platelet count, significant microcytic hypochromic anemia. No electrolyte abnormalities. Normal renal function. CSF study negative. Negative chest x-ray. Negative CT head. Seen by infectious disease consult. No acute pathology suspected. As patient is hemodynamically stable, we would consider management in telemetry floor. Consider hematology evaluation and transfusion of packed red blood cells to improve her blood pressure. Continue intravenous hydration. Continue to monitor septic workup. if patient's clinical condition deteriorates and needs intensive care unit care, we will transfer at that time. Claudio Nagy MD MTDD
[2018-03-15] MEDS: Sodium Chloride 0.9% 1,000 ML IV SCH (00:15)
[2018-03-15 08:22] LABS: BASO # 0.1 K/uL (0.0-0.2); BASO % 1.2 % (0.0-2.0); EOS # 0.1 K/uL (0.0-0.7); EOS % 2.1 % (0.0-4.0); HEMOGLOBIN 7.4 g/dL (12.0-16.0); LYMPH # 3.1 K/uL (1.0-4.3); LYMPH % 64.9 % (20.0-40.0); MEAN CELL VOLUME 54.4 fl (81.0-99.0); MEAN CORPUSCULAR HEMOGLOBIN 17.5 pg (27.0-31.0); MEAN CORPUSCULAR HGB CONC 32.2 g/dL (33.0-37.0); MONO # 0.2 K/uL (0.0-0.8); MONO % 4.1 % (0.0-10.0); NEUT # 1.3 K/uL (1.8-7.0); NEUT % 27.7 % (50.0-75.0); NRBC % 0.2 % (0.0-0.0); RBC 4.21 Mil/uL (3.80-5.20); RED CELL DISTRIBUTION WIDTH 21.1 % (11.5-14.5); WHITE BLOOD COUNT 4.7 K/uL (4.8-10.8)
[2018-03-15 08:31] LABS: ALB/GLOB RATIO 0.9 (1.0-2.1); ALBUMIN 3.1 g/dL (3.5-5.0); ALT/SGPT 63 U/L (9-52); AST/SGOT 60 U/L (14-36); BLOOD UREA NITROGEN 4 mg/dl (7-17); CALCIUM 8.2 mg/dL (8.4-10.2); GFR AFRICAN-AMERICAN > 60; GFR NON-AFRICAN AMERICAN > 60
--- NOTE | 2018-03-15 20:47 | CP.PCM.PN ---
Subjective - Date & Time of Evaluation Date of Evaluation: 03/15/18 Time of Evaluation: 20:38 - Subjective Subjective: pt doing well. less fever and tachycardia. all bw noted, consults appriciated. hgb stable Objective - Vital Signs/Intake and Output Vital Signs (last 24 hours): Temp Pulse Resp BP Pulse Ox 98.5 F 104 H 18 103/65 100 03/15/18 19:41 03/15/18 19:41 03/15/18 19:41 03/15/18 19:41 03/15/18 19:41 - Medications Medications: Current Medications Acetaminophen (Tylenol 325mg Tab) 650 mg PO Q4 PRN PRN Reason: Fever >100.4 F Last Admin: 03/14/18 05:51 Dose: 650 mg Fluticasone Propionate (Flonase) 2 spr VANDA DAILY PRN PRN Reason: Nasal congestion Ceftriaxone Sodium 1 gm/ (Sodium Chloride) 100 mls @ 100 mls/hr IVPB Q12H MATHEUS PRN Reason: Protocol Last Admin: 03/15/18 17:59 Dose: 100 mls/hr Ibuprofen (Motrin Tab) 400 mg PO Q6 PRN PRN Reason: Fever >100.4 F Loratadine (Claritin) 10 mg PO DAILY [facility] Last Admin: 03/15/18 10:56 Dose: 10 mg - Labs Labs: 03/15/18 08:10 03/15/18 08:10 - Constitutional Appears: Well, Non-toxic, No Acute Distress - Head Exam Head Exam: ATRAUMATIC, NORMAL INSPECTION, NORMOCEPHALIC - Eye Exam Eye Exam: EOMI, Normal appearance, PERRL Pupil Exam: NORMAL ACCOMODATION, PERRL - ENT Exam ENT Exam: Mucous Membranes Moist, Normal Exam - Neck Exam Neck Exam: Full ROM, Normal Inspection. absent: Lymphadenopathy - Respiratory Exam Respiratory Exam: Clear to Ausculation Bilateral, NORMAL BREATHING PATTERN - Cardiovascular Exam Cardiovascular Exam: REGULAR RHYTHM, RRR, +S1, +S2. absent: Murmur - GI/Abdominal Exam GI & Abdominal Exam: Soft, Normal Bowel Sounds. absent: Tenderness - Extremities Exam Extremities Exam: Full ROM, Normal Capillary Refill, Normal Inspection. absent : Joint Swelling, Pedal Edema - Back Exam Back Exam: NORMAL INSPECTION - Neurological Exam Neurological Exam: Alert, Awake, CN II-XII Intact, Normal Gait, Oriented x3 - Psychiatric Exam Psychiatric exam: Normal Affect, Normal Mood - Skin Skin Exam: Dry, Intact, Normal Color, Warm Assessment and Plan (1) Anemia Assessment & Plan: monitor hgb, appears stable chronic Status: Acute (2) DVT prophylaxis Assessment & Plan: scd nad aehose ambulation hold lovenox r/t anemia Status: Acute (3) Fever Status: Acute (4) Hypotension Assessment & Plan: improving w/ fluids, moniotr r/t sirs Status: Acute (5) SIRS (systemic inflammatory response syndrome) Assessment & Plan: unkn origin ?? viral c/s negative thus far, cont to monitor bw ID consult rocephin until cleared by ID arnold/champ dc Status: Acute
[2018-03-16 05:35] LABS: BASO # 0.1 K/uL (0.0-0.2); BASO % 2.1 % (0.0-2.0); EOS # 0.3 K/uL (0.0-0.7); EOS % 6.2 % (0.0-4.0); HEMOGLOBIN 7.9 g/dL (12.0-16.0); LYMPH # 1.7 K/uL (1.0-4.3); LYMPH % 32.8 % (20.0-40.0); MEAN CELL VOLUME 54.5 fl (81.0-99.0); MEAN CORPUSCULAR HGB CONC 31.2 g/dL (33.0-37.0); MEAN PLATELET VOLUME 9.2 fl (7.2-11.7); MONO # 0.5 K/uL (0.0-0.8); MONO % 8.7 % (0.0-10.0); NEUT # 2.6 K/uL (1.8-7.0); NEUT % 50.2 % (50.0-75.0); NRBC % 0.2 % (0.0-0.0); RBC 4.65 Mil/uL (3.80-5.20); RED CELL DISTRIBUTION WIDTH 21.1 % (11.5-14.5); WHITE BLOOD COUNT 5.3 K/uL (4.8-10.8)
[2018-03-16 05:55] LABS: ALBUMIN 3.6 g/dL (3.5-5.0); ALT/SGPT 56 U/L (9-52); AST/SGOT 45 U/L (14-36); BLOOD UREA NITROGEN 9 mg/dl (7-17); CALCIUM 8.5 mg/dL (8.4-10.2); GFR AFRICAN-AMERICAN > 60; GFR NON-AFRICAN AMERICAN > 60
[2018-03-16 08:12] LABS: HEPATITIS B SURFACE AG Negative (NEGATIVE)
[2018-03-16 08:17] LABS: HEPATITIS A IGM NEGATIVE (NEGATIVE); HEPATITIS B CORE AB NEGATIVE (NEGATIVE)
[2018-03-16 08:29] LABS: HEPATITIS C ANTIBODY NEGATIVE (NEGATIVE)
[2018-03-16 08:47] VITALS: BP 94/63; RESP 20; TEMP 97.9; O2SAT 100
[2018-03-16 10:54] VITALS: PULSE 75
--- NOTE | 2018-03-16 10:57 | CP.PCM.PN ---
Subjective - Date & Time of Evaluation Date of Evaluation: 03/16/18 Time of Evaluation: 10:00 - Subjective Subjective: discussed on rounds Objective - Vital Signs/Intake and Output Vital Signs (last 24 hours): Temp Pulse Resp BP Pulse Ox 97.9 F 75 20 94/63 L 100 03/16/18 08:00 03/16/18 09:00 03/16/18 08:00 03/16/18 08:00 03/16/18 08:00 - Medications Medications: Current Medications Acetaminophen (Tylenol 325mg Tab) 650 mg PO Q4 PRN PRN Reason: Fever >100.4 F Last Admin: 03/14/18 05:51 Dose: 650 mg Fluticasone Propionate (Flonase) 2 spr VANDA DAILY PRN PRN Reason: Nasal congestion Ceftriaxone Sodium 1 gm/ (Sodium Chloride) 100 mls @ 100 mls/hr IVPB Q12H MATHEUS PRN Reason: Protocol Last Admin: 03/16/18 05:28 Dose: 100 mls/hr Ibuprofen (Motrin Tab) 400 mg PO Q6 PRN PRN Reason: Fever >100.4 F Loratadine (Claritin) 10 mg PO DAILY COUNTS [facility]CLUDE 234 BEDS AT [facility] Last Admin: 03/16/18 08:44 Dose: 10 mg - Labs Labs: 03/16/18 04:20 03/16/18 04:20 Assessment and Plan (1) Anemia Status: Acute (2) Fever Status: Acute (3) Hypotension Status: Acute (4) SIRS (systemic inflammatory response syndrome) Status: Acute
--- NOTE | 2018-03-16 12:12 | CP.PCM.DIS ---
Provider - Provider Date of Admission: 03/14/18 08:31 Attending physician: Jose Johnson MD Time Spent in preparation of Discharge (in minutes): 20 Diagnosis - Discharge Diagnosis (1) Fever Status: Acute (2) Hypotension Status: Acute (3) Anemia Status: Acute (4) SIRS (systemic inflammatory response syndrome) Status: Acute (5) DVT prophylaxis Status: Acute Hospital Course - Lab Results Lab Results: Micro Results 03/13/18 14:32 Blood Blood Culture - Preliminary NO GROWTH AFTER 48 HOURS 03/13/18 16:50 Cerebral Spinal Fluid Gram Stain - Final 03/13/18 16:50 Cerebral Spinal Fluid CSF Culture - Preliminary NO GROWTH AFTER 2 DAYS 03/13/18 15:56 Throat Group A Strep Throat Culture - Final NO BETA STREP GROUP A ISOLATED. Most Recent Lab Values WBC 5.3 K/uL (4.8-10.8) 03/16/18 04:20 RBC 4.65 Mil/uL (3.80-5.20) 03/16/18 04:20 Hgb 7.9 g/dL (12.0-16.0) L 03/16/18 04:20 Hct 25.3 % (34.0-47.0) L 03/16/18 04:20 MCV 54.5 fl (81.0-99.0) L 03/16/18 04:20 MCH 17.0 pg (27.0-31.0) L 03/16/18 04:20 MCHC 31.2 g/dL (33.0-37.0) L 03/16/18 04:20 RDW 21.1 % (11.5-14.5) H 03/16/18 04:20 Plt Count 361 K/uL (130-400) 03/16/18 04:20 MPV 9.2 fl (7.2-11.7) 03/16/18 04:20 Neut % (Auto) 50.2 % (50.0-75.0) 03/16/18 04:20 Lymph % (Auto) 32.8 % (20.0-40.0) 03/16/18 04:20 [place] % (Auto) 8.7 % (0.0-10.0) 03/16/18 04:20 Eos % (Auto) 6.2 % (0.0-4.0) H 03/16/18 04:20 Baso % (Auto) 2.1 % (0.0-2.0) H 03/16/18 04:20 Neut # (Auto) 2.6 K/uL (1.8-7.0) 03/16/18 04:20 Lymph # (Auto) 1.7 K/uL (1.0-4.3) 03/16/18 04:20 Assumption # (Auto) 0.5 K/uL (0.0-0.8) 03/16/18 04:20 Eos # (Auto) 0.3 K/uL (0.0-0.7) 03/16/18 04:20 Baso # (Auto) 0.1 K/uL (0.0-0.2) 03/16/18 04:20 Neutrophils % (Manual) 78 % (42-75) H 03/14/18 06:32 Band Neutrophils % 1 % (0-2) 03/14/18 06:32 Lymphocytes % (Manual) 7 % (20-50) L 03/14/18 06:32 Monocytes % (Manual) 10 % (0-10) 03/14/18 06:32 Eosinophils % (Manual) 4 % (0-7) 03/14/18 06:32 Platelet Estimate Normal (NORMAL) 03/14/18 06:32 Hypochromasia (manual) Moderate 03/14/18 06:32 Anisocytosis (manual) Moderate 03/14/18 06:32 Microcytosis (manual) Marked 03/14/18 06:32 Tear Drop Cells Slight 03/14/18 06:32 Ovalocytes Slight 03/14/18 06:32 Schistocytes Slight 03/14/18 06:32 Sickle Cell Screen Negative (NEGATIVE) 03/13/18 16:00 Hemoglobinopathy Red Blood Count 4.27 Mill/mcL (3.80-5.10) 03/13/18 16:00 Hemoglobinopathy Hct 24.2 % (35.0-45.0) L 03/13/18 16:00 Hemoglobinopathy Hgb 7.5 g/dL (11.7-15.5) L 03/13/18 16:00 Hemoglobinopathy MCV 56.7 fL (80.0-100.0) L 03/13/18 16:00 Hemoglobinopathy MCH 17.6 pg (27.0-33.0) L 03/13/18 16:00 Hemoglobinopathy RDW 21.1 % (11.0-15.0) H 03/13/18 16:00 pO2 28 mm/Hg (30-55) L 03/13/18 13:59 VBG pH 7.36 (7.32-7.43) 03/13/18 13:59 VBG pCO2 40 mmHg (40-60) 03/13/18 13:59 VBG HCO3 22.2 mmol/L 03/13/18 13:59 VBG Total CO2 23.8 mmol/L (22-28) 03/13/18 13:59 VBG O2 Sat (Calc) 54.2 % (40-65) 03/13/18 13:59 VBG Base Excess -2.6 mmol/L (0.0-2.0) L 03/13/18 13:59 VBG Potassium 3.4 mmol/L (3.6-5.2) L 03/13/18 13:59 Sodium 137.0 mmol/L (132-148) 03/13/18 13:59 Chloride 105.0 mmol/L (98-107) 03/13/18 13:59 Glucose 117 mg/dL (65-105) H 03/13/18 13:59 Lactate 3.9 mmol/L (0.7-2.1) H 03/13/18 13:59 FiO2 21.0 % 03/13/18 13:59 Sodium 142 mmol/l (132-148) 03/16/18 04:20 Potassium 4.2 MMOL/L (3.6-5.0) 03/16/18 04:20 Chloride 109 mmol/L (98-107) H 03/16/18 04:20 Carbon Dioxide 22 mmol/L (22-30) 03/16/18 04:20 Anion Gap 15 (10-20) 03/16/18 04:20 BUN 9 mg/dl (7-17) 03/16/18 04:20 Creatinine 0.6 mg/dl (0.7-1.2) L 03/16/18 04:20 Est GFR ( Amer) > 60 03/16/18 04:20 Est GFR (Non-Af Amer) > 60 03/16/18 04:20 POC Glucose (mg/dL) 121 mg/dL (65-110) H 03/13/18 14:07 Random Glucose 90 mg/dL (65-105) 03/16/18 04:20 Lactic Acid 0.8 MMOL/L (0.7-2.1) 03/14/18 08:22 Calcium 8.5 mg/dL (8.4-10.2) 03/16/18 04:20 Phosphorus 3.2 mg/dl (2.5-4.5) 03/15/18 08:10 Magnesium 1.9 MG/DL (1.6-2.3) 03/15/18 08:10 Total Bilirubin 0.2 mg/dl (0.2-1.3) 03/16/18 04:20 AST 45 U/L (14-36) H D 03/16/18 04:20 ALT 56 U/L (9-52) H 03/16/18 04:20 Alkaline Phosphatase 58 U/L (38-126) 03/16/18 04:20 Total Protein 7.0 G/DL (6.3-8.2) 03/16/18 04:20 Albumin 3.6 g/dL (3.5-5.0) 03/16/18 04:20 Globulin 3.4 gm/dL (2.2-3.9) 03/16/18 04:20 Albumin/Globulin Ratio 1.0 (1.0-2.1) 03/16/18 04:20 Procalcitonin 2.76 NG/ML (0.19-0.49) H 03/14/18 09:20 Venous Blood Potassium 3.4 mmol/L (3.6-5.2) L 03/13/18 13:59 Urine Color Colorless (YELLOW) 03/14/18 20:50 Urine Clarity Clear (Clear) 03/14/18 20:50 Urine pH 7.0 (5.0-8.0) 03/14/18 20:50 Ur Specific [place] 1.009 (1.003-1.030) 03/14/18 20:50 Urine Protein Negative mg/dL (NEGATIVE) 03/14/18 20:50 Urine Glucose (UA) Neg mg/dL (Normal) 03/14/18 20:50 Urine Ketones Negative mg/dL (NEGATIVE) 03/14/18 20:50 Urine Blood Negative (NEGATIVE) 03/14/18 20:50 Urine Nitrate Negative (NEGATIVE) 03/14/18 20:50 Urine Bilirubin Negative (NEGATIVE) 03/14/18 20:50 Urine Urobilinogen 0.2-1.0 mg/dL (0.2-1.0) 03/14/18 20:50 Ur Leukocyte Esterase Neg Reg[place]/uL (Negative) 03/14/18 20:50 Urine RBC (Auto) 1 /hpf (0-3) 03/14/18 20:50 Urine Microscopic WBC < 1 /hpf (0-5) 03/14/18 20:50 Ur Squamous Epith Cells 1 /hpf (0-5) 03/14/18 20:50 Fluid Type Spinal fluid 03/13/18 16:50 CSF Volume 2 mL (0-1) H 03/13/18 16:50 CSF Appearance Clear/colorless (CLEAR) 03/13/18 16:50 CSF WBC 0.0 /mm3 (0.0-5.0) 03/13/18 16:50 CSF RBC 1.0 /mm3 (0.0-0.0) H 03/13/18 16:50 CSF Total Cell Counted 0 (0-0) 03/13/18 16:50 CSF Neutrophils 0 % (0-0) 03/13/18 16:50 CSF Lymphocytes 0.0 % (0-0) 03/13/18 16:50 CSF Monos/Macrophages 0 % (0-0) 03/13/18 16:50 CSF Comment Colorless 03/13/18 16:50 CSF Glucose 56 mg/dL (40-70) 03/13/18 16:50 CSF Total Protein 24.0 mg/dL (12-60) 03/13/18 16:50 Stool Occult Blood Negative (NEGATIVE) 03/15/18 13:58 RPR Nonreactive (NONREACTIVE) 03/15/18 08:10 Babesia microti IgG Ab TNP 03/14/18 08:51 Babesia microti IgM Ab TNP 03/14/18 08:51 Babesia Interpretation TNP 03/14/18 08:51 Hepatitis A IgM Ab Negative (NEGATIVE) 03/14/18 18:49 Hep Bs Antigen Negative (NEGATIVE) 03/14/18 18:49 Hep B Core IgM Ab Negative (NEGATIVE) 03/14/18 18:49 Hepatitis C Antibody Negative (NEGATIVE) 03/14/18 18:49 HSV I IgG Ab <0.90 index 03/14/18 09:20 HSV II IgG <0.90 index 03/14/18 09:20 HIV 1&2 Antibody Screen Negative (NEGATIVE) 03/14/18 09:20 Infectious Assumption Assay Negative (NEGATIVE) 03/14/18 09:20 Influenza Typ A,B (EIA) Negative for flu a/b (NEGATIVE) 03/14/18 13:30 Blood Parasites Smear Negative (NEGATIVE) 03/14/18 09:20 Grp A Beta Strep Ag Negative (NEGATIVE) 03/13/18 15:56 Blood Type O POSITIVE 03/14/18 09:25 Blood Type Confirm O POSITIVE 03/14/18 10:10 Antibody Screen Negative 03/14/18 09:25 Crossmatch See Detail 03/14/18 09:25 BBK History Checked No verified bt 03/14/18 09:25 - Hospital Course Hospital Course: ID consult, bw and c/s lp w/ c/s vanco/zosyn changed to rocephin by ID Discharge Exam - Head Exam Head Exam: ATRAUMATIC, NORMAL INSPECTION, NORMOCEPHALIC - Eye Exam Eye Exam: EOMI, Normal appearance, PERRL Pupil Exam: NORMAL ACCOMODATION, PERRL - Respiratory Exam Respiratory Exam: Clear to PA & Lateral, NORMAL BREATHING PATTERN, UNREMARKABLE - Cardiovascular Exam Cardiovascular Exam: REGULAR RHYTHM, RRR, +S1, +S2 - GI/Abdominal Exam GI & Abdominal Exam: Normal Bowel Sounds, Soft, Unremarkable - Extremities Exam Extremities exam: full ROM, normal capillary refill, normal inspection, pedal pulses present - Back Exam Back exam: FULL ROM - Neurological Exam Neurological exam: Alert, CN II-XII Intact, Normal Gait, Oriented x3, Reflexes Normal - Psychiatric Exam Psychiatric exam: Normal Affect, Normal Mood - Skin Skin Exam: Dry, Intact, Normal Color, Warm Discharge Plan - Discharge Medications Prescriptions: Amoxicillin/Clavulanate [Augmentin 875 MG-125 MG] 1 tab PO BID #10 tab - Follow Up Plan Condition: FAIR Disposition: HOME/ ROUTINE Additional Instructions: cleared by ID for dc c/s all negative at this time pt is doing well. no f/c, n/v/d. no maldonado/photophobia. michael po. pt requesting to be dc home f/u rmg in am, rted prn, meds per med rec. outpt bw monitoring. will f/u pending c/s and other results outpt heme/onc final dx-fever/sirs unkn origin, presumed viral. as per ID as procalcitonin elevated cont augmentin x 5 days further
[2018-03-17 10:41] LABS: HEMOGLOBIN A 59.7 Percent (>96.0); HEMOGLOBIN C 36.3 Percent (0.0-0.0)
[2018-03-17 15:04] LABS: PARVOVIRUS B19 AB (IGG) 7.6 (<0.9); PARVOVIRUS B19 AB (IGM) 0.7 (<0.9)
== END 2018-03-16 14:35 | disposition home or self-care (01) | DRG 421 ==
LOC: H.ER 13:42 → H.ERHOLD 17:58 → H.TEL 21:02 → OBSVTOIN 03-14 08:31
PROVIDERS: ADMIT Family Medicine; ATTEND Family Medicine
PROC: 009U3ZZ Drainage of Spinal Canal, Percutaneous Approach (ICD-10-PCS; principal; 2018-03-13)
DX: B34.9 Viral infection, unspecified (principal); D50.9 Iron deficiency anemia, unspecified; E86.0 Dehydration; I95.9 Hypotension, unspecified; J45.909 Unspecified asthma, uncomplicated; H53.149 Visual discomfort, unspecified

== ENCOUNTER 2018-05-18 18:04 | Emergency (ER) | payer MEDICAID ==
[2018-05-18 18:10] VITALS: RESP 16; O2SAT 99
--- NOTE | 2018-05-18 18:25 | ED PDOC ---
HPI: Abdomen Time Seen by Provider: 05/18/18 18:24 Chief Complaint (Nursing): Abdominal Pain Chief Complaint (Provider): abdominal pain History Per: Patient Additional Complaint(s): 17 y/o female presents with abdominal pain and nausea x 3 days. Patient states she is currently menstruating and started a new control pill about 3 weeks ago. She states she has severe lower abdominal pain and light vaginal bleeding. 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 She states today's symptoms are similar to when she had torsion in the past. Patient took Motrin earlier which usually helps her menstrual cramps but this did not help her pain. She denies any vomiting and denies concern for . Past Medical History Reviewed: Historical Data, Nursing Documentation, Vital Signs Vital Signs: Last Vital Signs Temp 98.6 F 05/18/18 18:08 Pulse 82 05/18/18 18:08 Resp 16 05/18/18 18:08 BP 105/70 05/18/18 18:08 Pulse Ox 99 05/18/18 18:08 - Medical History PMH: Anemia, Asthma - Surgical History Other surgeries: surgery for ovarian torsion - Family History Family History: States: Unknown Family Hx - Living Arrangements Living Arrangements: With Family - Social History Current smoker - smoking cessation education provided: No Alcohol: None Drugs: Denies - Home Medications Home Medications: Ambulatory Orders Medication Instructions Recorded Cetirizine HCl [All Day Allergy 10 mg PO DAILY 03/13/18 Relief] Fluticasone Nasal [Flonase] 2 spray VANDA DAILY PRN 03/13/18 Acetaminophen [Tylenol 325mg tab] 650 mg PO Q4 PRN tab 03/16/18 Amoxicillin/Clavulanate [Augmentin 1 tab PO BID #10 tab 03/16/18 875 MG-125 MG] Ibuprofen [Motrin Tab] 400 mg PO Q6 PRN tab 03/16/18 Loratadine [Claritin] 10 mg PO DAILY tab 03/16/18 - Allergies Allergies/Adverse Reactions: Allergies Allergy/AdvReac Type Severity Reaction Status Date / Time No Known Allergies Allergy Verified 03/13/18 13:43 Review of Systems ROS Statement: Except As Marked, All Systems Reviewed And Found Negative Constitutional: Negative for: Fever, Chills Cardiovascular: Negative for: Chest Pain Respiratory: Negative for: Cough Gastrointestinal: Positive for: Nausea, Abdominal Pain. Negative for: Vomiting, Diarrhea Genitourinary Female: Positive for: Vaginal Bleeding, Pelvic Pain Physical Exam - Reviewed Nursing Documentation Reviewed: Yes Vital Signs Reviewed: Yes - Physical Exam Appears: Positive for: Well, Non-toxic, No Acute Distress Skin: Positive for: Normal Color. Negative for: Rash Eye Exam: Positive for: Normal appearance Cardiovascular/Chest: Positive for: Regular Rate, Rhythm Respiratory: Positive for: Normal Breath Sounds Gastrointestinal/Abdominal: Positive for: Other (Moderate tenderness to lower abdomen, no rebound or guarding). Negative for: Distended Back: Negative for: L CVA Tenderness, R CVA Tenderness Extremity: Positive for: Normal ROM Neurologic/Psych: Positive for: Alert, Oriented - Laboratory Results Urine POC: Negative Urine dip results: Positive for: Leukocyte Esterase (small), Blood. Negative for: Nitrate, Ketones, Glucose, Bilirubin, Protein - ECG O2 Sat by Pulse Oximetry: 99 Pulse Ox Interpretation: Normal Medical Decision Making Medical Decision Makin17 y/o with lower abdominal pain Plan: Urine test Urine dip CBC CMP TV US IVF IV toradol IV zofran Disposition - Clinical Impression Clinical Impression: Abdominal pain - Patient ED Disposition Is Patient to be Admitted: Transfer of Care - Disposition Disposition: Transfer of Care Disposition Time: 20:00 Condition: FAIR Forms: [employer] (Eritrean) Patient Signed Over To: Vida Sutton Handoff Comments: Signed out pending diagnostic testing results and final disposition
[2018-05-18] MEDS ORDERED: Sodium Chloride 0.9% 1,000 ML IV STA (19:10)
[2018-05-18 20:12] LABS: ALB/GLOB RATIO 0.9 (1.0-2.1); ALBUMIN 4.1 g/dL (3.5-5.0); ALT/SGPT 24 U/L (9-52); AST/SGOT 32 U/L (14-36); BLOOD UREA NITROGEN 8 mg/dl (7-17); CALCIUM 9.2 mg/dL (8.4-10.2); GFR NON-AFRICAN AMERICAN > 60
[2018-05-18 20:24] LABS: URINE BACTERIA RARE (<OCC); URINE BILIRUBIN NEGATIVE (NEGATIVE); URINE BLOOD MODERATE (NEGATIVE); URINE CLARITY SLIGHTY-CLOUDY (Clear); URINE COLOR YELLOW (YELLOW); URINE GLUCOSE (UA) NEG (Normal); URINE LEUKOCYTE ESTERASE TRACE Leu/uL (Negative); URINE PROTEIN 30 mg/dL (NEGATIVE); URINE UROBILINOGEN 0.2-1.0 mg/dL (0.2-1.0)
[2018-05-18 20:27] LABS: BASO % 0.1 % (0.0-2.0); EOS % 0.2 % (0.0-4.0); HEMOGLOBIN 12.2 g/dL (12.0-16.0); LYMPH # 1.1 K/uL (1.0-4.3); LYMPH % 10.2 % (20.0-40.0); MEAN CORPUSCULAR HEMOGLOBIN 22.3 pg (27.0-31.0); MEAN CORPUSCULAR HGB CONC 32.8 g/dL (33.0-37.0); MEAN PLATELET VOLUME 9.3 fl (7.2-11.7); MONO # 0.6 K/uL (0.0-0.8); NEUT # 9.3 K/uL (1.8-7.0); NEUT % 84.5 % (50.0-75.0); NRBC % 0.1 % (0.0-0.0); RBC 5.46 Mil/uL (3.80-5.20); RED CELL DISTRIBUTION WIDTH 28.4 % (11.5-14.5); WHITE BLOOD COUNT 11.1 K/uL (4.8-10.8)
[2018-05-18 20:30] LABS: PARTIAL THROMBOPLASTIN TIME 30.6 Seconds (25.6-37.1)
--- NOTE | 2018-05-18 22:40 | ED PDOC ---
- Laboratory Results Result Diagrams: 05/18/18 19:55 05/18/18 19:55 Urine POC: Negative - ECG O2 Sat by Pulse Oximetry: 99 - Progress ED Course And Treament: Case endorsed to junior underwriter from [facility] [place] [facility] pending labs, u/s USArad u/s impression: thickened endometrium. Amber-ovarian fluid. Free fluid is seen in the cul-de-sac Patient educated on findings, discharged with rx Naproxen Denies urinary symptoms currently; will send urine for C&S Advised follow up [employer] within 2-3 days Return precautions given Disposition - Clinical Impression Clinical Impression: Pelvic pain, Vaginal bleeding, abnormal - POA Present On Arrival: None - Disposition Disposition: Routine/Home Disposition Time: 22:38 Condition: IMPROVED Prescriptions: Naproxen [Naprosyn] 500 mg PO Q12 PRN #20 tablet PRN Reason: Pain, Moderate (4-7) Instructions: Acute Pelvic Pain, Dysfunctional Uterine Bleeding (ED) Forms: [facility] ED School/Work Excuse
[2018-05-18 23:20] VITALS: BP 118/76; PULSE 80; TEMP 98
--- NOTE | 2018-05-19 11:56 | US ---
Date of service: 05/18/2018 HISTORY: Lower abdominal pain, heavy bleeding/cos. Pain and adnexal torsion suspected. Relevant surgical history: Left oophorectomy. LMP 05/10/2018. COMPARISON: None available. TECHNIQUE: Transabdominal only. Real-time technique with 2D, duplex and color Doppler FINDINGS: UTERUS: Measures 4.3 x 4.9 x 6.5 cm. Normal in size and appearance. No fibroid or other mass lesion seen. ENDOMETRIUM: Measures 19.3 mm in diameter. Endometrial hypertrophy without focal abnormality. No visible products of conception. CERVIX: No cervical abnormality identified. RIGHT OVARY: Measures 1.6 x 1.9 x 2.6 cm. No solid mass. Normal flow. LEFT OVARY: Prior left oophorectomy. FREE FLUID: Trace free fluid identified in the pelvis/cul de sac. OTHER FINDINGS: None. IMPRESSION: Status post left oophorectomy. No evidence of torsion right adnexa. Additional benign and/or incidental findings described above.
== END 2018-05-18 23:20 | disposition home or self-care (01) ==
LOC: H.ER 18:04
DX: R10.9 Unspecified abdominal pain (principal); N93.9 Abnormal uterine and vaginal bleeding, unspecified; Z90.721 Acquired absence of ovaries, unilateral
CPT/HCPCS: 76856; 80053; 81003; 85025; 85610; 85730; 87086; 96360; 99283; J1885; J2405; J7030